=== PATIENT | male | born 1980 | race Caucasian/White ===

== ENCOUNTER 2022-05-04 16:58 | Emergency (ER) | END 2022-05-04 19:27 | disposition home or self-care (01) | DX: K62.89 Other specified diseases of anus and rectum (principal); K51.20 Ulcerative (chronic) proctitis without complications | CPT/HCPCS: 99285; 74177; 96374; 96375; 80048; 85025; 36415; J2405; Q9967; J2270 ==

== ENCOUNTER 2022-05-27 08:12 | Emergency (ER) | payer OTHER ==
[~2022-05-27] VITALS: Ht 170.2 cm; Wt 77.1 kg
[~2022-05-27 08:12] MED LIST: HYDR100E5 RC; MESA10007 RC
[2022-05-27] MEDS ORDERED: HYDR100E5 RC (09:03)
--- NOTE | 2022-05-27 09:35 | NUR ---
PT WAS EVALUATED BY DR HARRIS. PT WAS D/C'd TO HOME. D/C INSTRUCTIONS GIVEN TO THE PT BY DR HARRIS.
[2022-05-27 09:37] VITALS: BP 128/72
== END 2022-05-27 09:37 | disposition home or self-care (01) ==
LOC: ER 08:16
DX: K62.89 Other specified diseases of anus and rectum (principal); Z88.0 Allergy status to penicillin
CPT/HCPCS: A4663